=== PATIENT | female | born 1990 ===

== ENCOUNTER → 2022-02-20 03:21 | Observation (INO) ==
[2022-02-20 01:18] LABS: Bacteria,Urine Few per hpf (None-Few); Bilirubin,Urine Negative (Negative); Blood,Urine Negative (Negative); Clarity,Urine Turbid (Clear); Color,Urine Light-Yellow (Yellow); Glucose,Urine (UA) Normal (Normal); Ketones,Urine Negative (Negative); Leukocyte Esterase,Urine Negative (Negative); Mucus,Urine Few per lpf (None-Few); Nitrite,Urine Negative (Negative); PH,Urine 6.5 pH Units (5.0-8.0); Protein,Urine Negative (Neg-Trace); RBC,Urine 0-3 per hpf (0-3); Specific Gravity,Urine 1.009 (1.010-1.025); Squamous Epithelial Cell,Urine Moderate per hpf (None-Few); Transitional Epi Cells,Urine Few per hpf (None-Few); Urobilinogen,Urine Normal (Normal); WBC,Urine 0-3 per hpf (0-3)
== END | disposition home or self-care (01) ==
LOC: 1NENULAB
PROVIDERS: ADMIT Obstetrics & Gynecology; ATTEND Obstetrics & Gynecology

== ENCOUNTER 2022-03-19 13:37 | Inpatient (IN) ==
[2022-03-19] MEDS ORDERED: *HR* Nalbuphine 10 MG/ML AMPUL IV PRN (13:49)
[2022-03-19] MEDS ORDERED: Ondansetron 4 MG/2 ML VIAL IVP PRN (13:49)
[2022-03-19] MEDS ORDERED: Famotidine 20 MG/2 ML VIAL IVP PRN (13:49)
[2022-03-19] MEDS ORDERED: Metoclopramide 10 MG/2 ML VIAL IVP PRN (13:49)
[2022-03-19] MEDS ORDERED: Naloxone 0.4 MG/ML INJ IVP PRN (13:49)
[2022-03-19] MEDS ORDERED: Lidocaine 1% 20 ML MDV INFILT PRN (13:49)
[2022-03-19] MEDS ORDERED: Oxytocin 30 UNIT/503 ML BAG IVC SCH ×2 (14:00→23:33)
[2022-03-19] MEDS ORDERED: EPHEDrine sulfate 50 MG/10 ML VIAL IVP PRN (14:09)
[2022-03-19] MEDS ORDERED: Epidural Premix (fent/bupiv) 110 ML EP SCH (14:15)
[2022-03-19 14:29] LABS: Basophils % 0.4 %; Eosinophils % 0.4 %; Hematocrit 32.1 % (35.3-44.9); Hemoglobin 10.3 g/dL (11.5-15.4); Immature Granulocytes % 0.8 % (0-4); Lymphocytes # 1.8 K/mcL (0.6-4.6); Lymphocytes % 21.5 %; Mean Corpuscular HGB Conc 32.1 g/dL (31.6-35.5); Mean Corpuscular Volume 84.3 fL (83.0-100.0); Mean Platelet Volume 13.5 fL (9.4-12.4); Monocytes # 0.5 K/mcL (0.0-1.3); Monocytes % 6.3 %; Platelet Count 135 K/mcL (140-400); Red Blood Count 3.81 M/mcL (3.82-4.97); Red Cell Distribution Width 13.4 % (11.5-14.5); Segmented Neutrophils % 70.6 %; White Blood Count 8.3 K/mcL (4.3-11.1)
[2022-03-19 14:31] LABS: Neutrophils # 5.9 K/mcL (1.6-8.9)
[2022-03-19] MEDS: Ringers Solution, Lactated 1,000 ML IVC SCH (15:16)
[2022-03-19 15:55] LABS: Amphetamine Screen,Urine Negative ng/mL (Cutoff=1000); Barbiturate Screen,Urine Negative ng/mL (Cutoff=200); Benzodiazepines Screen,Urine Negative ng/mL (Cutoff=200); Cannabinoid Screen,Urine Negative ng/mL (Cutoff = 50); Cocaine Screen,Urine Negative ng/mL (Cutoff= 300); Opiate Screen,Urine Negative ng/mL (Cutoff=300); Phencyclidine Screen,Urine Negative ng/mL (Cutoff=25)
[2022-03-19] MEDS ORDERED: Ropivacaine/PF 0.2% 20 ML VIAL ONE (19:14)
[2022-03-19] MEDS ORDERED: Ondansetron 4 MG/2 ML VIAL ONE (19:24)
[2022-03-19] MEDS ORDERED: Bupivacaine-MPF 0.25% 10 ML VIAL ONE (19:26)
[2022-03-19] MEDS ORDERED: *HR* FentaNYL (PF) 100 MCG/2 ML VIAL ONE (19:26)
[2022-03-19] MEDS ORDERED: Lidocaine/EPI 1:200k 2% PF 20 ML VIAL ONE (19:33)
[2022-03-19] MEDS ORDERED: Sodium Bicarbonate 50 MEQ/50 ML VIAL ONE (19:33)
[2022-03-19] MEDS ORDERED: Acetaminophen 325 MG TABLET PO SCH (23:33)
[2022-03-19] MEDS ORDERED: Rho Immune Globulin 1,500 UNIT SYRINGE IM PRN (23:33)
[2022-03-19] MEDS ORDERED: Lanolin 7 G OINT...G. TP PRN (23:33)
[2022-03-19] MEDS ORDERED: Benzocaine/Menthol 56 GM AEROSOL SPRAY TP PRN (23:33)
[2022-03-19] MEDS ORDERED: Ondansetron ODT 4 MG TAB.RAPDIS SL PRN (23:33)
[2022-03-19] MEDS ORDERED: Measles/Mumps/Rubella Vacc 0.5 ML VIAL SQ PRN (23:33)
[2022-03-19] MEDS: Ibuprofen 600 MG TABLET PO SCH (23:54)
[2022-03-20] MEDS ORDERED: Promethazine 6.25 MG in Water for inj. (sterile) 20 ML IVPB PRN (04:12)
[2022-03-20] MEDS ORDERED: *HR* HYDROmorphone PF 0.5 MG/0.5 ML SYRINGE IVP PRN (04:12)
[2022-03-20] MEDS ORDERED: *HR* Meperidine 25 MG/ML SYRINGE IVP PRN (04:12)
[2022-03-20] MEDS ORDERED: *HR* Labetalol 20 MG/4 ML SYRINGE IVP PRN (04:12)
[2022-03-20] MEDS ORDERED: Ringers Solution, Lactated 1,000 ML ONE ×2 (05:07→07:32)
[2022-03-20] MEDS: Ibuprofen 600 MG TABLET PO SCH ×2 (05:10→11:56)
[2022-03-20] MEDS: Ringers Solution, Lactated 1,000 ML IVC SCH (05:11)
[2022-03-20 05:38] LABS: Eosinophils % 0.5 %; Hemoglobin 10.7 g/dL (11.5-15.4)
[2022-03-20 05:39] LABS: Basophils % 0.3 %; Eosinophils # 0.1 K/mcL (0.0-0.6); Hematocrit 33.3 % (35.3-44.9); Immature Platelets 19.3 % (1.1-6.1); Lymphocytes # 2.7 K/mcL (0.6-4.6); Lymphocytes % 21.9 %; Mean Corpuscular HGB Conc 32.1 g/dL (31.6-35.5); Mean Corpuscular Hemoglobin 27.1 pg (28.0-33.3); Mean Corpuscular Volume 84.3 fL (83.0-100.0); Mean Platelet Volume 13.2 fL (9.4-12.4); Monocytes # 1.1 K/mcL (0.0-1.3); Monocytes % 9.3 %; Neutrophils # 8.2 K/mcL (1.6-8.9); Platelet Count 133 K/mcL (140-400); Red Blood Count 3.95 M/mcL (3.82-4.97); Red Cell Distribution Width 13.5 % (11.5-14.5); White Blood Count 12.2 K/mcL (4.3-11.1)
[2022-03-20] MEDS ORDERED: *HR* Propofol 200 MG/20 ML VIAL IVP ONE (05:59)
[2022-03-20] MEDS ORDERED: *HR* FentaNYL (PF) 100 MCG/2 ML VIAL ONE (05:59)
[2022-03-20] MEDS ORDERED: *HR* Midazolam HCl 2 MG/2 ML VIAL ONE (05:59)
[2022-03-20] MEDS ORDERED: Ondansetron 4 MG/2 ML VIAL ONE (06:00)
[2022-03-20] MEDS ORDERED: Lidocaine -MPF 2% 2 ML VIAL ONE (06:01)
[2022-03-20] MEDS ORDERED: Lidocaine/EPI 1:200k 2% PF 20 ML VIAL ONE (06:40)
[2022-03-20] MEDS ORDERED: *HR* Rocuronium Bromide 50 MG/5 ML VIAL ONE (06:56)
[2022-03-20] MEDS ORDERED: 0.9 % Sodium Chloride 250 ML ONE (07:27)
[2022-03-20] MEDS ORDERED: *HR* Phenylephrine 10 MG/ML VIAL ONE (07:27)
[2022-03-20] MEDS ORDERED: Prenatal Vit/FA 1 EACH TABLET PO SCH (09:00)
[2022-03-20] MEDS ORDERED: Morphine Sulfate 2 MG/ML SYRINGE IVP PRN (09:01)
[2022-03-20 09:02] VITALS: O2SAT 98
[2022-03-20 09:16] VITALS: PULSE 74
[2022-03-20 11:41] VITALS: BP 112/68; TEMP 98
== END 2022-03-20 19:12 | disposition home or self-care (01) | DRG 798 ==
LOC: 1NENULAB 13:37 → 1NENUOBS 22:31
PROVIDERS: ADMIT Obstetrics & Gynecology; ATTEND Obstetrics & Gynecology